=== PATIENT | female | born 2000 | race Caucasian/White ===

== ENCOUNTER 2024-08-27 04:03 | Inpatient (IN) | payer BC ==
[2024-08-27] MEDS ORDERED: Carboprost Tromethamine 250 MCG/1 mL Vial IM PRN (05:18)
[2024-08-27] MEDS ORDERED: Sodium Chloride 0.9% 20 ML SDV IV PRN (05:18)
[2024-08-27] MEDS ORDERED: Sodium Chloride 0.9% 10 ML Syringe FLUSH PRN (05:18)
[2024-08-27] MEDS ORDERED: Butorphanol 2 MG/ML SDV IVPUSH PRN (05:18)
[2024-08-27] MEDS ORDERED: Sodium Chloride 0.9% 2.5 ML Syringe FLUSH PRN (05:18)
[2024-08-27] MEDS ORDERED: Lidocaine 1% 50 ML MDV INJECT PRN (05:18)
[2024-08-27] MEDS ORDERED: Water For Irrigation,Sterile 1,000 ML Container IRR PRN (05:18)
[2024-08-27] MEDS ORDERED: Ondansetron 4 MG/2 ML SDV IVPUSH PRN (05:18)
[2024-08-27] MEDS ORDERED: Misoprostol 200 MCG Tab PO PRN (05:18)
[2024-08-27] MEDS ORDERED: Tranexamic Acid IN NACL,ISO-OS 1,000 MG in Premix Bag 1 BAG IV PRN (05:18)
[2024-08-27 06:53] LABS: HEMATOCRIT 37.4 % (37.0-47.0); HEMOGLOBIN 12.8 g/dL (12.0-16.0); MEAN CORPUSCULAR HEMOGLOBIN 31.1 pg (28.0-32.0); MEAN CORPUSCULAR HGB CONC 34.2 g/dL (32.0-36.0); MEAN PLATELET VOLUME 11.3 fL (9.4-12.3); PLATELET COUNT,PLT 141 K/uL (150-400); RED BLOOD CELL COUNT 4.11 M/uL (4.10-5.30); WHITE BLOOD CELL COUNT,WBC 10.17 K/uL (3.9-11.3)
[2024-08-27] MEDS: Lactated Ringers 1,000 ML IV SCH (09:36)
[2024-08-27] MEDS ORDERED: Ropivacaine HCl/PF 200 ML ONE (10:22)
[2024-08-27] MEDS ORDERED: Phenylephrine HCl In 0.9% NaCl 1 MG/10 ML Syringe ONE (10:22)
[2024-08-27] MEDS ORDERED: Bupivacaine 0.5% 10 ML SDV ONE (10:22)
[2024-08-27] MEDS: Ropivacaine HCl/PF 400 MG in Premix Bag 1 BAG EPIDUR SCH (10:34)
[2024-08-27] MEDS ORDERED: ePHEDrine 50 MG/ML SDV IVPUSH PRN (10:54)
[2024-08-27] MEDS ORDERED: Phenylephrine HCl In 0.9% NaCl 1 MG/10 ML Syringe IVPUSH PRN (10:54)
[2024-08-27] MEDS ORDERED: ePHEDrine 50 MG/ML SDV IM PRN (10:55)
[2024-08-27] MEDS ORDERED: Bupivacaine 0.5% 10 ML SDV INJECT ONE (10:55)
[2024-08-27] MEDS ORDERED: dexmedeTOMIDine HCl 200 MCG/2 ML SDV EPIDUR SCH (11:00)
[2024-08-27] MEDS ORDERED: Calcium Carbonate 500 MG Tab.Chew PO PRN (16:29)
[2024-08-27] MEDS: Oxytocin/0.9 % Sodium Chloride 30 UNIT/500 ML BAG IV SCH (17:42)
[2024-08-27] MEDS: Methylergonovine 0.2 MG/1 ML Amp IM PRN (17:53)
[2024-08-28] MEDS: Ibuprofen 800 MG Tab PO PRN (00:05)
[2024-08-28] MEDS: Witch Hazel Medicated Pads 40/Jar TOP PRN (00:06)
[2024-08-28] MEDS: Benzocaine/Menthol 20%-0.5% Spray 78 GM Cannister TOP PRN (00:06)
[2024-08-28] MEDS: Acetaminophen 500 MG Tab PO PRN (02:40)
[2024-08-28 06:05] LABS: HEMATOCRIT 32.7 % (37.0-47.0)
[2024-08-28] MEDS: Docusate Sodium 100 MG Cap PO PRN (10:30)
[2024-08-29 05:10] LABS: APPEARANCE,URINE CLEAR; BILIRUBIN,URINE NEGATIVE (NEGATIVE); COLOR,URINE YELLOW; GLUCOSE,URINE NEGATIVE (NEGATIVE); KETONES,URINE NEGATIVE (NEGATIVE); LEUKOCYTE ESTERASE,URINE NEGATIVE (NEGATIVE); NITRITE,URINE NEGATIVE (NEGATIVE); OCCULT BLOOD,URINE SMALL (NEGATIVE); PROTEIN,URINE NEGATIVE (NEGATIVE); UROBILINOGEN,URINE 0.2 EU/dL (<2.0)
[2024-08-29 05:15] LABS: EPITHELIAL CELLS,URINE FEW (NONE-FEW); WBC,URINE 0-2 (0-5/HPF)
[2024-08-29 05:16] LABS: BACTERIA,URINE RARE (NEGATIVE)
[2024-08-29] MEDS: Lanolin 100% Cream 7 GM Tube TOP PRN (09:44)
[2024-08-29] MEDS: Tamsulosin 0.4 MG Cap.ER PO SCH (12:38)
== END 2024-08-30 09:30 | disposition home or self-care (01) | DRG 560 ==
LOC: MW.OBCHECK 04:03 → MW.OB 04:05 → MW.OBCHECK 05:18 → MW.OB 05:18 → OBSVTOIN 17:41 → MW.OB 08-28 02:30
PROVIDERS: ADMIT Obstetrics & Gynecology; ATTEND Obstetrics & Gynecology
PROC: 10E0XZZ Delivery of Products of Conception, External Approach (ICD-10-PCS; principal; 2024-08-27)
PROC: 0KQM0ZZ Repair Perineum Muscle, Open Approach (ICD-10-PCS; 2024-08-27)
PROC: 3E0R3BZ Introduction of Anesthetic Agent into Spinal Canal, Percutaneous Approach (ICD-10-PCS; 2024-08-27)
PROC: 00HU33Z Insertion of Infusion Device into Spinal Canal, Percutaneous Approach (ICD-10-PCS; 2024-08-27)
DX: O42.02 Full-term premature rupture of membranes, onset of labor within 24 hours of rupture (principal); Z37.0 Single live birth; O70.1 Second degree perineal laceration during delivery; O99.893 Other specified diseases and conditions complicating puerperium; R33.8 Other retention of urine; Z3A.38 38 weeks gestation of pregnancy
CPT/HCPCS: 36415; 51702; 59025; 59409; 81001; 84112; 85014; 85018; 85027; 86592; 86850; 86900; 86901; A9270-GY; J0665; J2210; J2371; J2590; J2795; J7120